=== PATIENT | female | born 1945 | race Caucasian/White ===

== ENCOUNTER 2024-11-22 12:20 | Inpatient (IN) | payer MEDICARE ==
[2024-11-22 12:32] LABS: BASOPHILS PERCENT AUTO 0.7 % (0.1-1.3); EOSINOPHILS ABSOLUTE AUTO 0.19 K/uL (0.00-0.40); EOSINOPHILS PERCENT AUTO 1.3 % (0.0-5.4); HEMATOCRIT 42.3 % (34.3-46.0); HEMOGLOBIN 14.3 g/dL (11.2-15.5); IMMATURE GRAN ABSOLUTE AUTO 0.13 K/uL (0.00-0.23); IMMATURE GRAN PERCENT AUTO 0.9 % (0.0-0.7); LYMPHOCYTES ABSOLUTE AUTO 2.17 K/uL (0.8-3.3); LYMPHOCYTES PERCENT AUTO 14.6 % (11.4-47.7); MEAN CORPUSCULAR HEMOGLOBIN 28.9 pg (31.6-35.5); MEAN CORPUSCULAR HGB CONC 33.8 g/dL (31.6-35.5); MEAN CORPUSCULAR VOLUME 85.5 fL (81.4-99.0); MONOCYTES ABSOLUTE AUTO 1.19 K/uL (0.20-0.90); NEUTROPHILS ABSOLUTE AUTO 11.04 K/uL (1.0-7.6); NEUTROPHILS PERCENT AUTO 74.5 % (40.0-78.1); PLATELET COUNT,PLT 382 K/uL (130-375); RED BLOOD CELL COUNT 4.95 M/uL (3.77-5.24); WHITE BLOOD CELL COUNT,WBC 14.8 K/uL (3.2-11.0)
[2024-11-22] MEDS: HYDROmorphone 0.5 MG/0.5 ML Syringe IVPUSH ONE (12:33)
[2024-11-22 12:47] LABS: CREATININE 0.6 mg/dL (0.6-1.0); EST CRCL DRUG DOSING (CG) 54.61 mL/min; POTASSIUM,K 3.7 mmol/L (3.6-5.2)
[2024-11-22 12:48] LABS: ANION GAP 18.7 mmol/L (5.0-14.0)
[2024-11-22] MEDS: HYDROmorphone 0.5 MG/0.5 ML Syringe IVPUSH PRN ×2 (13:23→15:02)
[2024-11-22] MEDS ORDERED: Sodium Chloride 0.9% 10 ML Syringe FLUSH PRN (14:29)
[2024-11-22] MEDS ORDERED: Naloxone 0.4 MG/ML SDV IVPUSH PRN (14:29)
[2024-11-22] MEDS: Ondansetron 4 MG/2 ML SDV IV PRN (14:58)
[2024-11-22] MEDS: Heparin Sodium 5,000 Units/ML Vial SUBCUT SCH (15:54)
[2024-11-22] MEDS: Sodium Chloride 0.9% 1,000 ML IV SCH (15:54)
[2024-11-22] MEDS: Nicotine 21 MG/24 Hr Patch TRDERM SCH (15:54)
[2024-11-22] MEDS: oxyCODONE 5 MG Tab PO PRN (16:07)
[2024-11-22] MEDS: Nicotine Polacrilex 2 MG Gum CHEW PRN (16:07)
[2024-11-22] MEDS: Thiamine 100 MG Tab PO SCH (20:12)
[2024-11-23 05:55] LABS: HEMATOCRIT 34.3 % (34.3-46.0); HEMOGLOBIN 11.4 g/dL (11.2-15.5); MEAN CORPUSCULAR HEMOGLOBIN 28.9 pg (31.6-35.5); MEAN CORPUSCULAR HGB CONC 33.2 g/dL (31.6-35.5); MEAN CORPUSCULAR VOLUME 87.1 fL (81.4-99.0); RED BLOOD CELL COUNT 3.94 M/uL (3.77-5.24); WHITE BLOOD CELL COUNT,WBC 11.1 K/uL (3.2-11.0)
[2024-11-23 06:05] LABS: CALCIUM 8.3 mg/dL (8.5-10.1); CREATININE 0.5 mg/dL (0.6-1.0); EST CRCL DRUG DOSING (CG) 65.53 mL/min; MAGNESIUM 1.7 mg/dL (1.8-2.4)
[2024-11-23] MEDS: Aspirin 81 MG Tab.Chew PO SCH (08:27)
[2024-11-23] MEDS: Rosuvastatin 10 MG Tab PO SCH ×2 (08:27→21:22)
[2024-11-23] MEDS: Folic Acid 1 MG Tab PO SCH (08:27)
[2024-11-23] MEDS: Multivitamins with Iron Tab.Chew CHEW SCH (08:27)
[2024-11-23] MEDS: Magnesium Sulf/Wat 2 GM/50 mL 2 GM in Premix Bag 1 BAG IV ONE (08:37)
[2024-11-23] MEDS: amLODIPine 5 MG Tab PO SCH (08:41)
[2024-11-23] MEDS ORDERED: Propofol 200 MG/20 ML SDV ONE (09:31)
[2024-11-23] MEDS ORDERED: fentaNYL 100 MCG/2 ML SDV ONE (09:31)
[2024-11-23] MEDS ORDERED: Midazolam 1 MG/ML 2 ML SDV ONE (09:31)
[2024-11-23] MEDS: Bupivacaine 0.5%/EPINEPHrine 1:200,000 50 ML MDV ONE (12:13)
[2024-11-23] MEDS ORDERED: Ondansetron 4 MG/2 ML SDV ONE (13:13)
[2024-11-23] MEDS ORDERED: Dexamethasone 4 MG/ML SDV ONE (13:13)
[2024-11-23] MEDS ORDERED: Rocuronium 50 MG/5 ML Vial ONE (13:13)
[2024-11-23] MEDS: ceFAZolin 2 GM in Premix Bag 1 BAG IV ONE (13:20)
[2024-11-23] MEDS ORDERED: Sugammadex Sodium 200 MG/2 ML VIAL IV ONE (14:30)
[2024-11-24] MEDS: Acetaminophen 325 MG Tab PO PRN (04:47)
[2024-11-24 05:50] LABS: HEMATOCRIT 27.1 % (34.3-46.0); HEMOGLOBIN 9.1 g/dL (11.2-15.5); MEAN CORPUSCULAR HEMOGLOBIN 29.5 pg (31.6-35.5); MEAN CORPUSCULAR HGB CONC 33.6 g/dL (31.6-35.5); RED BLOOD CELL COUNT 3.08 M/uL (3.77-5.24); WHITE BLOOD CELL COUNT,WBC 16.1 K/uL (3.2-11.0)
[2024-11-24 06:06] LABS: CREATININE 0.6 mg/dL (0.6-1.0); EST CRCL DRUG DOSING (CG) 54.61 mL/min; POTASSIUM,K 3.9 mmol/L (3.6-5.2)
[2024-11-24 06:14] LABS: ANION GAP 10.9 mmol/L (5.0-14.0)
[2024-11-24] MEDS: tiZANidine 2 MG Tab PO PRN (14:41)
[2024-11-24] MEDS: Aspirin 325 MG Tab.EC PO SCH (20:27)
[2024-11-25 05:44] LABS: HEMATOCRIT 24.8 % (34.3-46.0); HEMOGLOBIN 8.3 g/dL (11.2-15.5); MEAN CORPUSCULAR HEMOGLOBIN 29.3 pg (31.6-35.5); MEAN CORPUSCULAR HGB CONC 33.5 g/dL (31.6-35.5); MEAN CORPUSCULAR VOLUME 87.6 fL (81.4-99.0); RED BLOOD CELL COUNT 2.83 M/uL (3.77-5.24)
[2024-11-25] MEDS: Polyethylene Glycol 3350 Powder 17 GM Packet PO PRN (12:42)
[2024-11-25] MEDS: Acetaminophen 500 MG Tab PO SCH (12:48)
[2024-11-26 06:17] LABS: HEMATOCRIT 27.5 % (34.3-46.0); MEAN CORPUSCULAR HGB CONC 32.7 g/dL (31.6-35.5); MEAN CORPUSCULAR VOLUME 88.7 fL (81.4-99.0); RED BLOOD CELL COUNT 3.1 M/uL (3.77-5.24); WHITE BLOOD CELL COUNT,WBC 16.4 K/uL (3.2-11.0)
[2024-11-26 06:32] LABS: CALCIUM 8.7 mg/dL (8.5-10.1); CREATININE 0.6 mg/dL (0.6-1.0); EST CRCL DRUG DOSING (CG) 54.61 mL/min; POTASSIUM,K 3.6 mmol/L (3.6-5.2)
[2024-11-26 06:35] LABS: ANION GAP 15.6 mmol/L (5.0-14.0)
[2024-11-26] MEDS ORDERED: tiZANidine 2 MG Tab PO PRN (10:34)
[2024-11-26] MEDS: traMADol 50 MG Tab PO PRN (13:11)
[2024-11-28 05:44] LABS: HEMATOCRIT 27.7 % (34.3-46.0); HEMOGLOBIN 9.3 g/dL (11.2-15.5); MEAN CORPUSCULAR HEMOGLOBIN 29.6 pg (31.6-35.5); MEAN CORPUSCULAR HGB CONC 33.6 g/dL (31.6-35.5); MEAN CORPUSCULAR VOLUME 88.2 fL (81.4-99.0); RED BLOOD CELL COUNT 3.14 M/uL (3.77-5.24); WHITE BLOOD CELL COUNT,WBC 12.5 K/uL (3.2-11.0)
== END 2024-11-28 10:04 | disposition home health service (06) | DRG 480 ==
LOC: JP.ED 12:20 → JP.MS 13:16
PROVIDERS: ADMIT Hospitalist; ATTEND Internal Medicine
PROC: 0QS734Z Reposition Left Upper Femur with Internal Fixation Device, Percutaneous Approach (ICD-10-PCS; principal; 2024-11-22)
DX: S72.142A Displaced intertrochanteric fracture of left femur, initial encounter for closed fracture (principal); F10.10 Alcohol abuse, uncomplicated; S72.002A Fracture of unspecified part of neck of left femur, initial encounter for closed fracture; J96.01 Acute respiratory failure with hypoxia; Y90.0 Blood alcohol level of less than 20 mg/100 ml; W00.0XXA Fall on same level due to ice and snow, initial encounter; D62 Acute posthemorrhagic anemia; H54.7 Unspecified visual loss; E78.00 Pure hypercholesterolemia, unspecified; I10 Essential (primary) hypertension; K44.9 Diaphragmatic hernia without obstruction or gangrene; J44.9 Chronic obstructive pulmonary disease, unspecified; F17.200 Nicotine dependence, unspecified, uncomplicated; F10.20 Alcohol dependence, uncomplicated; Z79.899 Other long term (current) drug therapy; W01.0XXA Fall on same level from slipping, tripping and stumbling without subsequent striking against object, initial encounter; Y93.01 Activity, walking, marching and hiking; Z79.82 Long term (current) use of aspirin; I35.2 Nonrheumatic aortic (valve) stenosis with insufficiency; R41.0 Disorientation, unspecified
CPT/HCPCS: 36415; 51702; 71045; 71045-26; 73502-26-LT; 73502-LT; 76000; 80048; 80307; 83735; 85025; 85027; 93005; 93010; 96374; 97110-GP; 97161-GP; 97165-GO; 97530-GP; 97535-GO; 99222; 99232; 99239; 99285; 99285-25; A9270-GY; C1713; C1776; J0690; J1100; J1644; J2250; J2405; J2704; J3010; J3475; J3490; J7030